=== PATIENT | female | born 2000 | race Two or more races ===

== ENCOUNTER 2022-08-25 06:05 | Inpatient (IN) | payer OTHER ==
[~2022-08-25] VITALS: Ht 152.4 cm; Wt 2.7 kg
[2022-08-25] MEDS ORDERED: PRENATAL TABLE1 EAC1 PO (06:49)
[2022-08-25] MEDS ORDERED: CHILDREN'S ASPI81 MG PO (06:49)
[2022-08-25] MEDS ORDERED: SYNTHROID125 MCG PO (06:49)
== END 2022-08-27 16:02 | disposition home or self-care (01) | DRG 788 ==
LOC: LDR 06:05 → OB/GYN 16:25
PROVIDERS: ADMIT Specialist; ATTEND Specialist
PROC: 4A1HXCZ Monitoring of Products of Conception, Cardiac Rate, External Approach (ICD-10-PCS; 2022-08-25)
PROC: 10D00Z1 Extraction of Products of Conception, Low, Open Approach (ICD-10-PCS; principal; 2022-08-25 15:00)
DX: O62.1 Secondary uterine inertia (principal); Z3A.38 38 weeks gestation of pregnancy; Z37.0 Single live birth; Z20.822 Contact with and (suspected) exposure to COVID-19